=== PATIENT | male | born 1950 | race Caucasian/White ===

== ENCOUNTER 2021-05-28 02:49 | Emergency (ER) | payer MEDICARE ==
[~2021-05-28] VITALS: Ht 170.2 cm; Wt 79.5 kg
[2021-05-28 03:52] VITALS: BP 117/86; PULSE 60; TEMP 98
== END 2021-05-28 03:52 | disposition home or self-care (01) ==
LOC: COL.ER 02:49
DX: R33.9 Retention of urine, unspecified (principal); I10 Essential (primary) hypertension; N40.0 Benign prostatic hyperplasia without lower urinary tract symptoms; Z79.899 Other long term (current) drug therapy
CPT/HCPCS: 31860; A4314

== ENCOUNTER 2021-06-05 12:36 | Day surgery (SDC) | payer MEDICARE ==
[~2021-06-05] VITALS: Ht 170.2 cm; Wt 80.0 kg
[2021-06-05] VITALS (10 sets, daily range): BP systolic 111–131; BP diastolic 72–82; PULSE 61–81; TEMP 97.8–98.1
[2021-06-05] MEDS ORDERED: NORVASC 5MG5 MG/TAB PO (13:36)
[2021-06-05] MEDS ORDERED: LOTENSIN40 MG PO (13:37)
[2021-06-05] MEDS ORDERED: HCTZ 25MG TAB25 MG PO (13:37)
[2021-06-05] MEDS ORDERED: TOVIAZ8 MG PO (13:38)
[2021-06-05] MEDS ORDERED: FLOMAX 0.40.4 MG/CAP PO (13:39)
[2021-06-05] MEDS ORDERED: LIPITOR 10MG10 MG PO (13:40)
[2021-06-05] MEDS ORDERED: PROTONIX 40MG T40 MG PO (13:40)
[2021-06-05] MEDS ORDERED: REVATIO20 MG PO (13:41)
--- NOTE | 2021-06-05 17:40 | NUR ---
Patient post-op TURP at 1725. Respers even and unlabored. Heart tones strong and even. Abdomen soft, non tender, non distended. Bowel sounds x4 quads. Holloway catheter in place, patent, connected to CBI. Post op vitals started. No c/o at this time.
--- NOTE | 2021-06-05 21:25 | NUR ---
PATIENT IS CALM IN THE ROOM ON CBI DRAINING REDDISH URINE.DENIES PAIN. SAFETY MEASURES IN PLACE.NO OTHER NEEDS AT THIS TIME.
[2021-06-06 04:05] VITALS: BP 108/64; PULSE 55; TEMP 97.7
--- NOTE | 2021-06-06 04:53 | NUR ---
PATIENT HAD A GOOD NIGHT.ON CONTINUOS CBI.VIRK DRAINING BRIGHT RED BLOOD.DENIES PAIN.NO OTHER NEEDS AT THIS TIME.
[2021-06-06 07:39] VITALS: BP 116/71; PULSE 57; TEMP 97.8
--- NOTE | 2021-06-06 09:10 | NUR ---
SW met with the patient to discuss discharge plan. The patient lives in [place] with his , Lucina (ph#[phone]). He reports independence with ADLs and does not have any DME. THe patient's PCP is Dr. Melvin Gama and he receives his medications from [facility]. He reports no difficulties obtaining his meds. The patient does not have a DPOA-HC in EMR, but he states that he does have one completed and that it designates his . The patient plans to return home with his upon discharge. No additional needs at this time. *Discharge plan: home with *
--- NOTE | 2021-06-06 09:37 | NUR ---
Initial visit; Patient thanked Desizing Machine Operator for looking in on him and offering prayer and God's blessings.
--- NOTE | 2021-06-06 10:11 | NUR ---
Patient alert and oriented, answers questions appropriately. See assessment. Holloway catheter in place, patent, draining red tinged urine, CBI infusing at slow rate. Holloway catheter and santiago-care completed. No c/o at this time.
--- NOTE | 2021-06-06 11:00 | NUR ---
Holloway catheter discontinued at 1050 per Drs order. Aspen care completed. Six bottle routine initiated.
--- NOTE | 2021-06-06 11:52 | NUR ---
Received positive for malnutrition. Pt discharging today to home.
[2021-06-06 12:00] VITALS: BP 113/64; PULSE 58; TEMP 98
--- NOTE | 2021-06-06 14:03 | NUR ---
Discharge instructions reviewed with patient and spouse, verbalized understanding. Discharged ambulatory to auto/home with spouse at 1400.
== END 2021-06-06 14:00 | disposition home or self-care (01) ==
LOC: SDCO 12:36 → SURG 18:02 → SDCO 06-06 14:00
DX: N40.1 Benign prostatic hyperplasia with lower urinary tract symptoms (principal); N32.0 Bladder-neck obstruction; R33.8 Other retention of urine; R97.20 Elevated prostate specific antigen [PSA]; I10 Essential (primary) hypertension; E78.5 Hyperlipidemia, unspecified; K21.9 Gastro-esophageal reflux disease without esophagitis; Z79.899 Other long term (current) drug therapy
CPT/HCPCS: OP; J0690; J1100; J2405; J2704; J3010; J3480; J7120